=== PATIENT | male | born 1990 | race Caucasian/White ===

== ENCOUNTER 2018-03-06 04:31 | Emergency (ER) | END 2018-03-06 05:07 | disposition home or self-care (01) ==

== ENCOUNTER 2018-10-15 11:44 | Emergency (ER) | payer SELFPAY ==
[~2018-10-15] VITALS: Ht 172.7 cm; Wt 97.6 kg
[~2018-10-15 11:44] MED LIST: BEN50 PO
[2018-10-15 11:47] VITALS: BP 130/71; PULSE 74; RESP 18; Ht 172.7 cm; Wt 97.6 kg
== END 2018-10-15 22:36 | disposition left against medical advice (07) ==
LOC: E/R 11:44
DX: Z53.21 Procedure and treatment not carried out due to patient leaving prior to being seen by health care provider (principal)